=== PATIENT | female | born 1985 | race Two or more races ===

== ENCOUNTER 2016-09-24 11:13 | Emergency (ER) | payer OTHER, MEDICAID ==
[~2016-09-24] VITALS: Ht 149.9 cm; Wt 68.0 kg
[2016-09-24 11:30] VITALS: BP 119/76
== END 2016-09-24 13:40 | disposition home or self-care (01) ==
LOC: ER 11:14
DX: G89.29 Other chronic pain (principal); M54.5 Low back pain

== ENCOUNTER 2023-11-12 12:56 | Emergency (ER) | payer MEDICAID, OTHER | END 2023-11-12 13:57 | disposition left against medical advice (07) | LOC: ER 12:56 | DX: R06.02 Shortness of breath (principal); Z53.21 Procedure and treatment not carried out due to patient leaving prior to being seen by health care provider ==

== ENCOUNTER 2024-11-20 20:25 | Emergency (ER) | payer MEDICAID ==
[~2024-11-20] VITALS: Ht 149.9 cm; Wt 90.8 kg
--- NOTE | 2024-11-20 20:40 | ED.PDOC ---
HPI Comments 39-year-old female came to ER for chest pains. Patient states she woke up this morning with the headaches, took Excedrin for the pain. By around noon, she will developed left-sided chest pains, pinching, nonradiating, worse when taking deep breaths. 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 History Family History Family History: Reviewed,noncontributory to illness Social History Smoker: Non-Smoker Alcohol: Denies ETOH Use Drugs: Denies Drug Use Lives In: Home Constitutional: denies: chills, diaphoresis, fatigue, fever, malaise, sweats, weakness, others EENTM: denies: blurred vision, double vision, ear bleeding, ear discharge, ear drainage, ear pain, ear ringing, eye pain, eye redness, hearing loss, mouth pain, mouth swelling, nasal discharge, nose bleeding, nose congestion, nose pain, photophobia, tearing, throat pain, throat swelling, voice changes, others Respiratory: denies: cough, hemoptysis, orthopnea, SOB at rest, shortness of breath, SOB with excertion, stridor, wheezing, others Cardiovascular: reports: chest pain; denies: dizzy spells, diaphoresis, Dyspnea on exertion, edema, irregular heart beat, left arm pain, lightheadedness, palpitations, PND, syncope, others Gastrointestinal: denies: abdomen distended, abdominal pain, blood streaked bowels, constipated, diarrhea, dysphagia, difficulty swallowing, hematemesis, melena, nausea, poor appetite, poor fluid intake, rectal bleeding, rectal pain, vomiting, others Genitourinary: denies: abnormal vagina bleeding, burning, dyspareunia, dysuria, flank pain, frequency, hematuria, incontinence, pain, , vagina discharge, urgency, others Neurological: reports: headache; denies: dizziness, fainting, left sided numbness, left sided weakness, numbness, paresthesia, pre-existing deficit, right sided numbness, right sided weakness, seizure, speech problems, tingling, tremors, weakness, others Musculoskeletal: denies: back pain, gout, joint pain, joint swelling, muscle pain, muscle stiffness, neck pain, others Integumetry: denies: bruises, change in color, change in hair/nails, dryness, laceration, lesions, lumps, rash, wounds, others Allergic/Immunocompromised: denies: Difficulty Healing, Frequent Infections, Hives, Itching, others Hematologic/Lymphatic: denies: anemia, blood clots, easy bleeding, easy bruising, swollen glands, others Endocrine: denies: excessive hunger, excessive sweating, excessive thirst, excessive urination, flushing, intolerance to cold, intolerance to heat, unexplained weight gain, unexplained weight loss, others Psychiatric: denies: anxiety, bipolar disorder, depression, hopeless, panic disorder, schizophrenia, sleepless, suicidal, others Physical Exam General Appearance: No Apparent Distress, Normal HEENT: Normal ENT Inspection, Pharynx Normal, TMs Normal Neck: Full Range of Motion, Non-Tender, Normal, Normal Inspection Respiratory: Chest Non-Tender, Lungs Clear, No Accessory Muscle Use, No Respiratory Distress, Normal Breath Sounds Cardiovascular: No Edema, No JVD, No Murmur, No Gallop, Normal Peripheral Pulses, Regular Rate/Rhythm Breast Exam: Deferred Gastrointestinal: No Organomegaly, Non Tender, No Pulsatile Mass, Normal Bowel Sounds, Soft Genitalia: Deferred Pelvic: Deferred Rectal: Deferred Extremities: No calf tenderness, Normal capillary refill, Normal inspection, Normal range of motion, Non-tender, No pedal edema Musculoskeletal : Apperance: Normal 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 Was a procedure done?: No CP Differential Dx Differential Diagnosis: Angina, Anxiety / Panic Attack Differential Diagnosis: Angina, Chest Wall Pain, Costochondritis, Esophageal reflux/spasm, Gastritis, Myocardial Infarction, Pericarditis, Pneumonia, Pneumothorax, Pulmonary Embolus X-Ray, Labs, Meds, VS Vital Signs Date Time Temp Pulse Resp B/P (MAP) Pulse Ox O2 Delivery O2 Flow Rate FiO2 11/20/24 23:16 89 11/20/24 22:58 83 19 100 Room Air 11/20/24 22:58 98.1 83 19 133/66 (88) 100 98.1 11/20/24 21:19 98 11/20/24 20:40 103 11/20/24 20:30 103 11/20/24 20:27 97.5 106 18 138/99 97 97.5 Lab Test 11/20/24 21:28 11/20/24 20:37 Range/Units Troponin I High Sensitivity < 3 L < 3 L </=34 ng/L White Blood Count 8.7 4.4-10.8 10^3/uL Red Blood Count 4.56 4.0-5.20 10^6/uL Hemoglobin 15.3 12.2-16.2 g/dL Hematocrit 43.5 36.0-46.0 % Mean Corpuscular Volume 95.4 80.0-100.0 fL Mean Corpuscular Hemoglobin 33.5 H 28.0-32.0 pg Mean Corpuscular Hemoglobin Concent 35.1 32.0-36.0 g/dL Red Cell Distribution Width 13.1 11.8-14.3 % Platelet Count 270 140-450 10^3/uL Mean Platelet Volume 8.5 6.9-10.8 fL Neutrophils (%) (Auto) 52.4 37.0-80.0 % Lymphocytes (%) (Auto) 38.6 10.0-50.0 % Monocytes (%) (Auto) 7.3 0.0-12.0 % Eosinophils (%) (Auto) 1.3 0.0-7.0 % Basophils (%) (Auto) 0.4 0.0-2.0 % Neutrophils # (Auto) 4.6 1.6-8.6 10 ^3/uL Lymphocytes # (Auto) 3.4 0.4-5.4 10 ^3/uL Monocytes # (Auto) 0.6 0-1.3 10 ^3/uL Eosinophils # (Auto) 0.1 0-0.8 10 ^3/uL Basophils # (Auto) 0 0-0.2 10 ^3/uL Nucleated Red Blood Cells 0.1 % D-Dimer, Quantitative 0.60 H 0.0-0.49 mg/L FEU Sodium Level 142 136-145 mmol/L Potassium Level 4.1 3.5-5.1 mmol/L Chloride Level 107 98-107 mmol/L Carbon Dioxide Level 23 20-31 mmol/L Anion Gap 12 5-15 Blood Urea Nitrogen 9 9-23 mg/dL Creatinine 0.80 0.550-1.02 mg/dL Glomerular Filtration Rate Calc 97 >90 mL/min BUN/Creatinine Ratio 11.3 10.0-20.0 Serum Glucose 95 74-106 mg/dL Calcium Level 9.8 8.7-10.4 mg/dL Current Medications Medications (Trade) Dose Ordered Sig/[place] Route Start Time Stop Time Status Last Admin Ketorolac Tromethamine (Toradol Injection) 15 mg ONCE ONCE IM 11/20/24 20:45 11/20/24 20:46 DC 11/20/24 22:58 EXAM: XY CHEST XRAY 1 VIEW HISTORY: cp TECHNIQUE: 1 view of the chest COMPARISON: None FINDINGS/IMPRESSION: LUNGS: No pleural effusion, consolidation, or pneumothorax . Peribronchial thickening, which is nonspecific however may represent infectious versus inflammatory bronchitis. MEDIASTINUM: Unremarkable BONES: No acute osseous abnormality OTHER: None Time of 1ST Reevaluation: 20:36 Reevaluation 1ST: Unchanged Time of 2ND Reevaluation: 22:10 Reevaluation 2ND: Unchanged Time of 3RD Reevaluation: 01:53 Reevaluation 3RD: AMA Patient Education/Counseling: Diagnosis, Treatment, Prognosis, Need For Follow Up Family Education/Counseling: No Family Present SEPSIS Sepsis Screen Date sepsis recognized/suspect: Nov 20, 2024 Time Sepsis recognized/suspect: 2027 Recent Procedure: No On Antibiotic Therapy: No Respiratory Rate >20: No Heart Rate >90: Yes Temp<36 C (96.8 F) or >38.3 C: No SBP <90 or MAP <65 mmHG: No New Acute Mental Status Change: No Is the patient on CPAP, BIPAP,: No Physician Orders Electrocardigram (11/20/24 23:34) Chest Xray 1 View (11/20/24 20:35) Test, Urine (11/20/24 20:35) Ct Angio Chest Contrast (11/20/24 23:21) Test, Urine (11/21/24 01:15) Vital Signs Date Time Temp Pulse Resp B/P (MAP) Pulse Ox O2 Delivery O2 Flow Rate FiO2 11/20/24 23:16 89 11/20/24 22:58 83 19 100 Room Air 11/20/24 22:58 98.1 83 19 133/66 (88) 100 98.1 11/20/24 21:19 98 11/20/24 20:40 103 11/20/24 20:30 103 11/20/24 20:27 97.5 106 18 138/99 97 97.5 Laboratory Tests Test 11/20/24 20:37 White Blood Count 8.7 10^3/uL (4.4-10.8) Medications Medications Dose Ordered Sig/[place] Route Start Time Stop Time Status Last Admin Dose Admin Ketorolac Tromethamine 15 mg ONCE ONCE IM 11/20/24 20:45 11/20/24 20:46 DC 11/20/24 22:58 Departure 1 Departure Time of Disposition: 01:54 Impression: Primary Impression: Chest pain Disposition: 07 LEFT AGAINST MEDICAL ADVICE Condition: Other (Unknown) Discharged With: Self Critical Care Note Critical Care Time?: Yes (90 min-critical care time only) Critical care comment: Due to concerns for patients condition deteriorating, the care required my highest level of attention and readiness to intervene. I assessed the patient, reviewed the medical records, ordered the appropriate tests and treatments, then reassessed for results and responsiveness. I communicated with medical personnel and consultants and formulated a plan of care. Total critical care time excludes any procedures Patient came in with chest pain and shortness of breath, she is tachycardic tachypneic and her D-dimer was elevated. My primary concern was a PE. However we are still waiting on her urine for her urine test before she can be taken to CAT scan in the meantime patient decided to leave against medical advice understanding the risks and benefits as well as options Stability Stability form required: No Heart Score Heart Score: Heart Score Response (Comments) Value History N/A 0 EKG N/A 0 Age N/A 0 Risk Factors N/A 0 Troponin N/A 0 Total 0 I personally scribed for DAISY GLOVER MD ([facility]) on 11/20/24 at 20:40. Electronically submitted by Germán Sandoval ([facility]). I personally scribed for DAISY GLOVER MD ([facility]) on 11/20/24 at 21:16. Electronically submitted by Germán Sandoval ([facility]). I personally scribed for DAISY GLOVER MD ([facility]) on 11/20/24 at 23:19. Electronically submitted by Germán Sandoval ([facility]). DAISY GLOVER MD Nov 20, 2024 20:40
[2024-11-20 21:09] LABS: Hematocrit 43.5 % (36.0-46.0); Hemoglobin 15.3 g/dL (12.2-16.2); Mean Corpuscular Hemoglobin 33.5 pg (28.0-32.0); Mean Corpuscular Volume 95.4 fL (80.0-100.0); Nucleated Red Blood Cells % 0.1 %
--- NOTE | 2024-11-20 21:11 | DVH ---
EXAM: XY CHEST XRAY 1 VIEW HISTORY: cp TECHNIQUE: 1 view of the chest COMPARISON: None FINDINGS/IMPRESSION: LUNGS: No pleural effusion, consolidation, or pneumothorax . Peribronchial thickening, which is nonsp ecific however may represent infectious versus inflammatory bronchitis. MEDIASTINUM: Unremarkable BONES: No acute osseous abnormality OTHER: None
[2024-11-20 21:18] LABS: Potassium 4.1 mmol/L (3.5-5.1); Sodium 142 mmol/L (136-145)
[2024-11-20 21:19] LABS: Anion Gap 12 (5-15); Calcium 9.8 mg/dL (8.7-10.4); Carbon Dioxide 23 mmol/L (20-31)
--- NOTE | 2024-11-20 21:20 | ECG ---
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
[2024-11-20 21:24] LABS: BUN/Creatinine Ratio 11.3 (10.0-20.0); Blood Urea Nitrogen 9 mg/dL (9-23); Chloride 107 mmol/L (98-107); Glucose 95 mg/dL (74-106)
[2024-11-20 22:58] VITALS: BP 133/66; RESP 19; TEMP 98.1; O2SAT 100
[2024-11-20] MEDS: KETOROLAC TROMETH 30 MG/ML 1ML VIAL IM ONE (22:58)
[2024-11-20 23:16] VITALS: PULSE 89
--- NOTE | 2024-11-20 23:18 | ECG ---
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
--- NOTE | 2024-11-21 02:54 | ECG ---
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
--- NOTE | 2024-11-26 09:51 | ECG ---
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
== END 2024-11-21 01:52 | disposition left against medical advice (07) ==
LOC: ER 20:25
DX: R07.89 Other chest pain (principal); Z98.890 Other specified postprocedural states
CPT/HCPCS: 36415; 71045; 80048; 84484; 85025; 85379; 93005; 96372; 99285; J1885